=== PATIENT | male | born 1950 | race Caucasian/White ===

== ENCOUNTER 2019-03-13 14:27 | Outpatient (CLI) | payer MEDICARE, OTHER ==
[~2019-03-13 14:27] MED LIST: CEFPROZIL PO; DOCU-131 PO; HYDR-3240 PO; LISI5TAB7 PO; LOSA25TA25 PO; METH750T87 PO; ROSU5TAB PO
== END 2019-03-13 23:59 | disposition home or self-care (01) ==
LOC: RAD 14:27
PROVIDERS: ATTEND Nurse Practitioner Gerontology
DX: M48.061 Spinal stenosis, lumbar region without neurogenic claudication (principal)
CPT/HCPCS: 72110